=== PATIENT | male | born 1955 | race Caucasian/White ===

== ENCOUNTER 2021-09-29 03:01 | Emergency (ER) | payer BC ==
[~2021-09-29] VITALS: Ht 165.1 cm; Wt 61.7 kg
[2021-09-29 03:13] VITALS: BP 153/80
--- NOTE | 2021-09-29 03:16 | NUR ---
BIBS C/O NAUSEA AND DIZZINESS. PT STATES HE HASNT EATEN ALL DAY. BS-154. PATIENT ALERT AND ORIENTED X3. AMBULATORY WITH NON LABORED BREATHING IN BED 02 AWAITING MD RIOS.
--- NOTE | 2021-09-29 03:20 | NUR ---
MD DISCUSSED HAVING LABS AND IMAGING PERFORMED FOR PATIENT COMPLAINT OF DIZZINESS. PATIENT DID NOT WISH TO HAVE THESE TESTS PERFORMED.
--- NOTE | 2021-09-29 03:30 | NUR ---
Patient discharged to home in stable condition. Written and verbal after care instructions given. Patient verbalizes understanding of instruction.
== END 2021-09-29 03:28 | disposition home or self-care (01) ==
LOC: ER 03:22
DX: R42 Dizziness and giddiness (principal); R11.0 Nausea; E11.9 Type 2 diabetes mellitus without complications
CPT/HCPCS: 82962-TC